=== PATIENT | female | born 1955 | race Caucasian/White ===

== ENCOUNTER 2016-04-28 08:47 | Outpatient (CLI) | payer OTHER ==
[~2016-04-28 08:47] MED LIST: ESTRADIOL1 MG PO; ESTRADIOL2 MG PO; METHADONE HCL10 MG PO; MILK THISTLE200 MG PO; MIRALAX EQUIVAL17 GM PO; MULTIPLE VITAMIN PO; SENNA-TABS8.6 MG PO
--- NOTE | 2016-04-28 11:02 | DIAGNOSTIC IMAGING REPORT ---
PROCEDURE: US ABDOMEN ULTRASOUND-LIMITED INDICATION: CHRONIC HEP C W/O HEP COMA TECHNIQUE: Juan scale and color Doppler sonographic images of the abdomen were obtained without comparison. COMPARISON: None. FINDINGS: The liver demonstrates increased echogenicity. There is a tiny 6 mm echogenic focus in the left lobe liver. In the right lobe liver near the diaphragm there is a 14 mm cyst. The gallbladder is normal without stones or sludge. The wall is normal thickness measuring 1.7 mm there is a 4 mm polyp in the anterior wall of the gallbladder near the neck. No pericholecystic fluid or Otero sign. The extrahepatic common duct is normal measuring 3.1 mm The visualized pancreas is normal without ductal dilatation or peripancreatic fluid collection. The abdominal aorta is normal in its course and caliber. The retrohepatic inferior vena cava is patent. There is appropriate hepatopetal flow in the portal vein. The right kidney measures 12.3 cm in length. There is no perihepatic or perisplenic ascites. IMPRESSION: 1. Echogenic liver consistent with intrinsic liver disease.
== END 2016-04-28 23:00 ==
LOC: US SRH 08:47
DX: B18.2 Chronic viral hepatitis C (principal)